=== PATIENT | female | born 1985 | race Caucasian/White ===

== ENCOUNTER 2018-03-29 13:30 | Emergency (ER) | payer MEDICAID ==
[2018-03-29] MEDS: ACETAMINOPHEN 325 MG TAB PO (15:10)
== END 2018-03-29 15:16 | disposition home or self-care (01) ==
LOC: FTE 13:30
DX: O99.512 Diseases of the respiratory system complicating pregnancy, second trimester (principal); J06.9 Acute upper respiratory infection, unspecified; J02.9 Acute pharyngitis, unspecified; Z3A.16 16 weeks gestation of pregnancy
CPT/HCPCS: 87880; 99283